=== PATIENT | male | born 1990 | race African-American/Black ===

== ENCOUNTER 2020-09-01 17:33 | Emergency (ER) | payer SELFPAY ==
[~2020-09-01] VITALS: Ht 193 cm; Wt 81.6 kg
[2020-09-01 17:57] VITALS: BP 135/93
--- NOTE | 2020-09-01 18:33 | NUR ---
SEEN AND EXAMINED BY MARQUISE JOSEPH.
--- NOTE | 2020-09-01 18:52 | NUR ---
RAPID STREP SPECIMEN OBTAINED AND SENT TO LAB.
[2020-09-01] MEDS ORDERED: PRED20TA PO (20:28)
== END 2020-09-01 20:42 | disposition home or self-care (01) ==
LOC: ER 17:33
DX: T78.3XXA Angioneurotic edema, initial encounter (principal); J02.8 Acute pharyngitis due to other specified organisms; R59.0 Localized enlarged lymph nodes; Z79.899 Other long term (current) drug therapy
CPT/HCPCS: 86403-TC; 87070-TC